=== PATIENT | female | born 1940 | race Caucasian/White ===

== ENCOUNTER 2016-08-24 11:26 | Emergency (ER) | payer MEDICARE, OTHER ==
--- NOTE | 2016-08-24 11:56 | C.PDOC ---
History Of Present Illness 76-year-old female, presents to the emergency department requesting "something to help me sleep." Patient states she ran out of her medication two weeks ago and wanted to go to the doctor but he is not working today. Denies any nausea/ vomiting, fevers, chills, chest pain, or any other associated symptoms. No other complaints at this time. Time Seen by Provider: 08/24/16 11:56 Chief Complaint (Nursing): Psychiatric Evaluation History Per: Patient History/Exam Limitations: no limitations Onset/Duration Of Symptoms: Days Current Symptoms Are (Timing): Still Present Severity: Moderate Past Medical History Reviewed: Historical Data, Nursing Documentation, Vital Signs Vital Signs: Last Vital Signs Temp 97.6 F 08/24/16 13:30 Pulse 59 L 08/24/16 13:30 Resp 16 08/24/16 13:30 BP 108/70 08/24/16 13:30 Pulse Ox 99 08/24/16 13:30 Family History: States: Unknown Family Hx Review Of Systems Except As Marked, All Systems Reviewed And Found Negative. Constitutional: Negative for: Fever Cardiovascular: Negative for: Chest Pain Respiratory: Negative for: Shortness of Breath Gastrointestinal: Negative for: Nausea, Vomiting Neurological: Negative for: Weakness, Headache, Dizziness Physical Exam - Physical Exam Appears: Non-toxic, No Acute Distress Skin: Warm, Dry, No Rash Head: Atraumatic, Normacephalic Eye(s): bilateral: Normal Inspection, PERRL, EOMI Nose: Normal Oral Mucosa: Moist Lips: Normal Appearing Neck: Normal ROM Cardiovascular: Rhythm Regular, No Murmur Respiratory: Normal Breath Sounds, No Accessory Muscle Use Gastrointestinal/Abdominal: Soft, No Tenderness Extremity: Normal ROM Neurological/Psych: Oriented x3, Normal Speech ED Course And Treatment O2 Sat by Pulse Oximetry: 98 Progress Note: Patient advised that ER does not fill sleep medication, and she was instructed to f/u outpatient with PMD. Progress - Data Reviewed Data Reviewed: Old records Disposition Counseled Patient/Family Regarding: Diagnosis, Need For Followup - Disposition Referrals: YOUR,PMD [Other] Disposition: HOME/ ROUTINE Disposition Time: 12:06 Condition: GOOD Instructions: Insomnia (ED) Print Language: BURKINAN - Clinical Impression Clinical Impression: Insomnia - Scribe Statement The provider has reviewed the documentation as recorded by the Scribe (Jairo Perez) All medical record entries made by the Scribe were at my direction and personally dictated by me. I have reviewed the chart and agree that the record accurately reflects my personal performance of the history, physical exam, medical decision making, and the department course for this patient. I have also personally directed, reviewed, and agree with the discharge instructions and disposition.
[2016-08-24 12:15] VITALS: BMI 41.1
[2016-08-24 13:48] VITALS: BP 108/70; PULSE 59; RESP 16; TEMP 97.6
[2016-08-26 15:08] VITALS: O2SAT 98
== END 2016-08-24 13:43 | disposition home or self-care (01) ==
LOC: C.ER 11:26
DX: G47.00 Insomnia, unspecified (principal)